=== PATIENT | male | born 1960 | race Caucasian/White ===

== ENCOUNTER 2024-08-06 01:27 | Emergency (ER) | payer OTHER, MEDICAID ==
[~2024-08-06] VITALS: Ht 175.3 cm; Wt 72.6 kg
[2024-08-06] MEDS ORDERED: MORPHINE SULFATE INJ 4 MG/ML DISP.SYRIN ONE (01:50)
[2024-08-06] MEDS: MORPHINE SULFATE INJ 2 MG/ML DISP.SYRIN IM ONE (01:57)
[2024-08-06] MEDS ORDERED: HYDR-3976 GT (02:39)
[2024-08-06] MEDS ORDERED: HYDR-3976 PO (02:56)
[2024-08-06 03:59] VITALS: BP 146/89; TEMP 98.2; O2SAT 98
== END 2024-08-06 04:00 | disposition home or self-care (01) ==
LOC: ER 01:29
DX: S42.001A Fracture of unspecified part of right clavicle, initial encounter for closed fracture (principal); W01.0XXA Fall on same level from slipping, tripping and stumbling without subsequent striking against object, initial encounter; Y93.89 Activity, other specified; Y92.89 Other specified places as the place of occurrence of the external cause; Y99.8 Other external cause status
CPT/HCPCS: 99284; 71045; 96372; 73030; J2270